=== PATIENT | male | born 1965 ===

== ENCOUNTER 2019-03-17 11:02 | Inpatient (IN) | payer SELFPAY ==
[2019-03-17 11:49] LABS: Basophils # (Auto) 0.2 K/mm3 (0.0-0.1); Basophils % (Auto) 1.1 % (0.0-1.8); Eosinophils # (Auto) 0.3 K/mm3 (0.0-0.4); Eosinophils % (Auto) 1.9 % (0.0-4.3); Hematocrit 42.6 % (35.5-45.6); Hemoglobin 14.5 gm/dl (11.8-15.2); Lymphocytes # (Auto) 2.4 K/mm3 (1.2-5.4); Lymphocytes % (Auto) 15.7 % (13.4-35.0); Mean Corpuscular HGB Conc 34 % (32-34); Mean Corpuscular Volume 88 fl (84-94); Monocytes # (Auto) 0.8 K/mm3 (0.0-0.8); Monocytes % (Auto) 5.1 % (0.0-7.3); Platelet Count 259 K/mm3 (140-440); Red Blood Count 4.82 M/mm3 (3.65-5.03); Red Cell Distribution Width 12.5 % (13.2-15.2)
[2019-03-17 12:12] LABS: Alanine Aminotransferase 6 units/L (7-56); Albumin 3.5 g/dL (3.9-5); BUN/Creatinine Ratio 22; Blood Urea Nitrogen 13 mg/dL (9-20); Calcium 9.7 mg/dL (8.4-10.2); Hemolysis Index 35
--- NOTE | 2019-03-17 12:39 | XRay Report ---
LEFT FOOT, 3 views: History: Diabetic foot wound. There is mild distal soft tissue swelling. Soft tissue ulceration of the distal great toe is suspected with overlying bandage. There is no obvious bony destruction, fracture or joint pathology. IMPRESSION: Soft tissue findings as described. The bony structures are unremarkable .
[2019-03-17] MEDS ORDERED: VANCOMYCIN 1,500 MG in NACL 0.9% 500 ML 500 ML IV ONE (14:47)
[2019-03-17] MEDS ORDERED: NACL 0.9% 1000 ML IV ONE (14:47)
[2019-03-17] MEDS ORDERED: VANCOMYCIN PHARMACY TO DOSE IV SCH (15:00)
[2019-03-17] MEDS: ZOSYN/NS 4.5GM/100ML 4.5 GM/100 ML VIAL IV SCH ×2 (15:00→23:06)
[2019-03-17] MEDS ORDERED: ZOFRAN IV ONE (15:01)
[2019-03-17] MEDS ORDERED: MORPHINE IV ONE (15:01)
--- NOTE | 2019-03-17 15:12 | Emergency Department Report ---
ED General Adult HPI - General Chief complaint: Extremity Problem,Nontraumatic Stated complaint: LFT FOOT INJURY/PAIN Time Seen by Provider: 03/17/19 14:33 Source: patient Mode of arrival: Ambulatory Limitations: Language Barrier - History of Present Illness Initial comments: Patient presents to the emergency department with a chief complaint of left foot pain and drainage from an abscess of his left foot. Patient states he has diabetes and normally cuts his nails himself but a couple of weeks ago he admitted himself and has had issues since that time. Patient states this has happened before but he was able to treat it with peroxide and salt water baths -: Gradual Location: lower extremity Severity scale (0 -10): 10 Quality: sharp Consistency: constant Improves with: none Worsens with: movement Associated Symptoms: denies other symptoms Treatments Prior to Arrival: none - Related Data Allergies Allergy/AdvReac Type Severity Reaction Status Date / Time No Known Allergies Allergy Verified 03/17/19 11:23 ED Review of Systems ROS: Stated complaint: LFT FOOT INJURY/PAIN Other details as noted in HPI Comment: All other systems reviewed and negative Constitutional: denies: chills, fever Eyes: denies: eye pain, eye discharge, vision change ENT: denies: ear pain, throat pain Respiratory: denies: cough, shortness of breath, wheezing Cardiovascular: denies: chest pain, palpitations Endocrine: no symptoms reported Gastrointestinal: denies: abdominal pain, nausea, diarrhea Genitourinary: denies: urgency, dysuria Musculoskeletal: other (left foot pain and infection). denies: back pain, joint swelling, arthralgia Skin: denies: rash, lesions Neurological: denies: headache, weakness, paresthesias Psychiatric: denies: anxiety, depression Hematological/Lymphatic: denies: easy bleeding, easy bruising ED Past Medical Hx - Past Medical History Previous Medical History?: Yes Hx Diabetes: Yes - Surgical History Past Surgical History?: No - Social History Smoking Status: Never Smoker Substance Use Type: None ED Physical Exam - General Limitations: Language Barrier General appearance: alert, in no apparent distress - Head Head exam: Present: atraumatic, normocephalic - Eye Eye exam: Present: normal appearance, PERRL, EOMI - ENT ENT exam: Present: mucous membranes moist - Neck Neck exam: Present: normal inspection - Respiratory Respiratory exam: Present: normal lung sounds bilaterally. Absent: respiratory distress, wheezes, rales - Cardiovascular Cardiovascular Exam: Present: normal rhythm, tachycardia, other (patient has palpable dorsalis pedis and posterior tibialis pulses of the left foot). Absent: systolic murmur, diastolic murmur, rubs, gallop - GI/Abdominal GI/Abdominal exam: Present: soft, normal bowel sounds. Absent: distended, tenderness - Rectal Rectal exam: Present: deferred - Extremities Exam Extremities exam: Present: other (there is dry gangrene of the great toe of the left foot) - Back Exam Back exam: Present: normal inspection - Neurological Exam Neurological exam: Present: alert, oriented X3, CN II-XII intact. Absent: motor sensory deficit - Psychiatric Psychiatric exam: Present: normal affect, normal mood - Skin Skin exam: Present: warm, dry, intact, normal color, other (there is cellulitis or purulent drainage of the left foot with erythema and warmth to touch) ED Course Vital Signs 03/17/19 11:22 Temperature 97.5 F L Pulse Rate 103 H Respiratory 20 Rate Blood Pressure 142/93 [Right] O2 Sat by Pulse 100 Oximetry ED Medical Decision Making - Lab Data Result diagrams: 03/17/19 11:39 03/17/19 11:39 Lab Results 03/17/19 03/17/19 03/17/19 Range/Units 11:24 11:39 11:39 WBC 15.6 H (4.5-11.0) K/mm3 RBC 4.82 (3.65-5.03) M/mm3 Hgb 14.5 (11.8-15.2) gm/dl Hct 42.6 (35.5-45.6) % MCV 88 (84-94) fl MCH 30 (28-32) pg MCHC 34 (32-34) % RDW 12.5 L (13.2-15.2) % Plt Count 259 (140-440) K/mm3 Lymph % (Auto) 15.7 (13.4-35.0) % [place] % (Auto) 5.1 (0.0-7.3) % Eos % (Auto) 1.9 (0.0-4.3) % Baso % (Auto) 1.1 (0.0-1.8) % Lymph # 2.4 (1.2-5.4) K/mm3 [place] # 0.8 (0.0-0.8) K/mm3 Eos # 0.3 (0.0-0.4) K/mm3 Baso # 0.2 H (0.0-0.1) K/mm3 Seg Neutrophils % 76.2 H (40.0-70.0) % Seg Neutrophils # 11.8 H (1.8-7.7) K/mm3 Sodium 134 L (137-145) mmol/L Potassium 4.6 (3.6-5.0) mmol/L Chloride 95.8 L (98-107) mmol/L Carbon Dioxide 23 (22-30) mmol/L Anion Gap 20 mmol/L BUN 13 (9-20) mg/dL Creatinine 0.6 L (0.8-1.5) mg/dL Estimated GFR > 60 ml/min BUN/Creatinine Ratio 22 % Glucose 207 H (75-100) mg/dL POC Glucose 198 H (70-105) Lactic Acid (0.7-2.0) mmol/L Calcium 9.7 (8.4-10.2) mg/dL Total Bilirubin 0.70 (0.1-1.2) mg/dL AST 13 (5-40) units/L ALT 6 L (7-56) units/L Alkaline Phosphatase 108 (35-129) units/L Total Protein 8.8 H (6.3-8.2) g/dL Albumin 3.5 L (3.9-5) g/dL Albumin/Globulin Ratio 0.7 % 03/17/19 03/17/19 Range/Units 11:39 14:57 WBC (4.5-11.0) K/mm3 RBC (3.65-5.03) M/mm3 Hgb (11.8-15.2) gm/dl Hct (35.5-45.6) % MCV (84-94) fl MCH (28-32) pg MCHC (32-34) % RDW (13.2-15.2) % Plt Count (140-440) K/mm3 Lymph % (Auto) (13.4-35.0) % [place] % (Auto) (0.0-7.3) % Eos % (Auto) (0.0-4.3) % Baso % (Auto) (0.0-1.8) % Lymph # (1.2-5.4) K/mm3 [place] # (0.0-0.8) K/mm3 Eos # (0.0-0.4) K/mm3 Baso # (0.0-0.1) K/mm3 Seg Neutrophils % (40.0-70.0) % Seg Neutrophils # (1.8-7.7) K/mm3 Sodium (137-145) mmol/L Potassium (3.6-5.0) mmol/L Chloride (98-107) mmol/L Carbon Dioxide (22-30) mmol/L Anion Gap mmol/L BUN (9-20) mg/dL Creatinine (0.8-1.5) mg/dL Estimated GFR ml/min BUN/Creatinine Ratio % Glucose (75-100) mg/dL POC Glucose 183 H (70-105) Lactic Acid 1.40 (0.7-2.0) mmol/L Calcium (8.4-10.2) mg/dL Total Bilirubin (0.1-1.2) mg/dL AST (5-40) units/L ALT (7-56) units/L Alkaline Phosphatase (35-129) units/L Total Protein (6.3-8.2) g/dL Albumin (3.9-5) g/dL Albumin/Globulin Ratio % - Radiology Data Radiology results: image reviewed - Medical Decision Making Plan of care discussed with patient Results discussed with patient Sepsis protocol initiated Critical Care Time: Yes Critical care time in (mins) excluding proc time.: 35 Critical care attestation.: If time is entered above; I have spent that time in minutes in the direct care of this critically ill patient, excluding procedure time. ED Disposition Clinical Impression: Sepsis, Cellulitis, Dry gangrene Disposition: OP ADMIT IP TO THIS HOSP Is pt being admited?: Yes Does the pt Need Aspirin: No Condition: Fair Referrals: CYNTHIA SHAH MD [Primary Care Provider] - 3-5 Days
--- NOTE | 2019-03-17 15:24 | History and Physical Report ---
History of Present Illness Chief complaint: My foot hurts History of present illness: 43 YO Male with DM presents to ED for evaluation. Pt states that he has experienced pain and swelling in his left foot over the past 2 weeks with worsening symptoms over the past 4 days. Pt acknowledges redness, and purulent drainage from his left foot. Pt states that symptoms began after trimming his toenails 2 weeks ago. Pt denies fever, chills, CP, Palpitations, NVD, Trauma, productive cough, or recent ill contacts. Pt transported to [facility] via private vehicle. Pt seen and evaluated in ED and found to have Diabetic Foot complicated by SIRS, and LLE Cellulitis. Pt admitted to medical floor and treated with IV antibiotic therapy. No prior admission for review. No medication listed at time of exam for reconciliation. Past History Past Medical History: diabetes Past Surgical History: No surgical history, Other (reviewed) Social history: single. denies: smoking, alcohol abuse, prescription drug abuse Family history: diabetes, hypertension Medications and Allergies Allergies Allergy/AdvReac Type Severity Reaction Status Date / Time No Known Allergies Allergy Verified 03/17/19 11:23 Home Medications Medication Instructions Recorded Confirmed Last Taken Type No Known Home Medications [No 03/17/19 03/17/19 Unknown History Reported Home Medications] Active Meds: Active Medications Vancomycin HCl 1,500 mg/ (Sodium Chloride) 530 mls @ 333 mls/hr IV ONCE ONE; Protocol Stop: 03/17/19 16:22 Piperacillin Sod/Tazobactam Sod (Zosyn/Ns 4.5gm/100ml) 4.5 gm in 100 mls @ 200 mls/hr IV Q8HR [facility]; Protocol Review of Systems Constitutional: no weight loss, no weight gain, no fever, no chills Ears, nose, mouth and throat: no ear pain, no ear discharge, no tinnitis, no decreased hearing, no nose pain, no nasal congestion Cardiovascular: no chest pain, no orthopnea, no palpitations, no rapid/irregular heart beat, no syncope Respiratory: no cough, no cough with sputum, no excessive sputum, no hemoptysis, no shortness of breath Gastrointestinal: no abdominal pain, no nausea, no vomiting, no diarrhea, no constipation Genitourinary Male: no hematuria, no flank pain, no discharge, no urinary frequency, no urinary hesitancy Rectal: no pain, no incontinence, no bleeding Musculoskeletal: no neck stiffness, no neck pain, no shooting arm pain, no low back pain, no shooting leg pain Integumentary: redness, foot/leg ulcers, no rash, no pruritis Neurological: no transient paralysis, no paralysis, no weakness, no tingling, no seizures, no syncope Psychiatric: no anxiety, no memory loss, no change in sleep habits, no sleep disturbances, no insomnia, no hypersomnia, no disorientation Endocrine: no cold intolerance, no heat intolerance, no polyuria, no nocturia, no excessive sweating Hematologic/Lymphatic: no easy bruising, no easy bleeding, no lymphadenopathy Allergic/Immunologic: no urticaria, no allergic rhinitis, no wheezing, no persistent infections Exam - Constitutional Vitals: Temp Pulse Resp BP Pulse Ox 97.5 F L 103 H 20 142/93 100 03/17/19 11:22 03/17/19 11:22 03/17/19 11:22 03/17/19 11:22 03/17/19 11:22 General appearance: Present: mild distress - EENT Eyes: Present: PERRL ENT: hearing intact, clear oral mucosa - Neck Neck: Present: supple, normal ROM - Respiratory Respiratory effort: normal Respiratory: bilateral: CTA - Cardiovascular Heart Sounds: Present: S1 & S2. Absent: rub, click - Extremities Extremities: pulses symmetrical, No edema Extremity abnormal: edema, erythema, tenderness Peripheral Pulses: within normal limits - Abdominal General gastrointestinal: Present: soft, non-tender, non-distended, normal bowel sounds Male genitourinary: Present: normal - Integumentary Integumentary: Present: clear, warm, dry - Musculoskeletal Musculoskeletal: gait normal, strength equal bilaterally - Psychiatric Psychiatric: appropriate mood/affect, intact judgment & insight - Neurologic Neurologic: CNII-XII intact, moves all extremities Results - Labs CBC & Chem 7: 03/17/19 11:39 03/17/19 11:39 Labs: Abnormal lab results 03/17/19 03/17/19 03/17/19 Range/Units 11:24 11:39 11:39 WBC 15.6 H (4.5-11.0) K/mm3 RDW 12.5 L (13.2-15.2) % Baso # 0.2 H (0.0-0.1) K/mm3 Seg Neutrophils % 76.2 H (40.0-70.0) % Seg Neutrophils # 11.8 H (1.8-7.7) K/mm3 Sodium 134 L (137-145) mmol/L Chloride 95.8 L (98-107) mmol/L Creatinine 0.6 L (0.8-1.5) mg/dL Glucose 207 H (75-100) mg/dL POC Glucose 198 H (70-105) ALT 6 L (7-56) units/L Total Protein 8.8 H (6.3-8.2) g/dL Albumin 3.5 L (3.9-5) g/dL 03/17/19 Range/Units 14:57 WBC (4.5-11.0) K/mm3 RDW (13.2-15.2) % Baso # (0.0-0.1) K/mm3 Seg Neutrophils % (40.0-70.0) % Seg Neutrophils # (1.8-7.7) K/mm3 Sodium (137-145) mmol/L Chloride (98-107) mmol/L Creatinine (0.8-1.5) mg/dL Glucose (75-100) mg/dL POC Glucose 183 H (70-105) ALT (7-56) units/L Total Protein (6.3-8.2) g/dL Albumin (3.9-5) g/dL Assessment and Plan - Patient Problems (1) Cellulitis Current Visit: Yes Status: Acute Qualifiers: Site of cellulitis of extremity: lower extremity Laterality: left Plan to address problem: IV antibiotic therapy, MRI Left Lower extremity, CBC, CMP, x ray RLE to evaluate for periosteal elevation. (2) Diabetic foot Current Visit: Yes Status: Acute Plan to address problem: Xray LLE, MRI LLE, treat cellulitis, wound care consult (3) SIRS (systemic inflammatory response syndrome) Current Visit: Yes Status: Acute Plan to address problem: IV antibiotic therapy, IVF resuscitation therapy, CBC, CMP, Chest x ray (4) Diabetes Current Visit: Yes Status: Acute Plan to address problem: ADA diet, Insulin, accu check (5) DVT prophylaxis Current Visit: Yes Status: Acute Plan to address problem: SCD to BLE while in bed, prophylactic lovenox
[2019-03-17] MEDS ORDERED: ZOFRAN IV PRN (15:25)
[2019-03-17] MEDS ORDERED: PROVENTIL IH PRN (15:25)
[2019-03-17] MEDS ORDERED: TYLENOL PO PRN (15:25)
[2019-03-17] MEDS ORDERED: MORPHINE IV PRN (15:25)
[2019-03-17] MEDS ORDERED: VANCOMYCIN/NS 1 GM/250 ML 1 GM/250 ML BAG IV ONE (15:28)
[2019-03-17] MEDS ORDERED: D50W (25GM) Syringe IV PRN (17:51)
[2019-03-17] MEDS: PEPCID PO SCH (23:04)
[2019-03-17] MEDS: LOVENOX SUB-Q SCH (23:04)
[2019-03-17] MEDS: SODIUM CHLORIDE FLUSH SYRINGE 10 ML IV SCH (23:05)
[2019-03-17] MEDS: HumaLOG SUB-Q SCH (23:05)
[2019-03-18 05:58] LABS: Basophils % (Auto) 0.5 % (0.0-1.8); Eosinophils # (Auto) 0.2 K/mm3 (0.0-0.4); Eosinophils % (Auto) 2.6 % (0.0-4.3); Hematocrit 34.7 % (35.5-45.6); Hemoglobin 12.1 gm/dl (11.8-15.2); Lymphocytes # (Auto) 2.1 K/mm3 (1.2-5.4); Lymphocytes % (Auto) 22.4 % (13.4-35.0); Mean Corpuscular HGB Conc 35 % (32-34); Mean Corpuscular Volume 87 fl (84-94); Monocytes # (Auto) 0.7 K/mm3 (0.0-0.8); Monocytes % (Auto) 8.1 % (0.0-7.3); Platelet Count 212 K/mm3 (140-440); Red Blood Count 3.98 M/mm3 (3.65-5.03); Red Cell Distribution Width 12.3 % (13.2-15.2)
[2019-03-18] MEDS: VANCOMYCIN 1,250 MG in NACL 0.9% 250ML 250 ML IV SCH ×2 (06:18→18:30)
[2019-03-18 06:20] LABS: Albumin 3.2 g/dL (3.9-5); BUN/Creatinine Ratio 16; Blood Urea Nitrogen 11 mg/dL (9-20); Calcium 8.6 mg/dL (8.4-10.2); Hemolysis Index 5
[2019-03-18 06:29] LABS: Alanine Aminotransferase < 5 units/L (7-56)
[2019-03-18] MEDS: PEPCID PO SCH ×2 (09:55→21:40)
[2019-03-18] MEDS: HumaLOG SUB-Q SCH ×4 (09:55→21:41)
[2019-03-18] MEDS: SODIUM CHLORIDE FLUSH SYRINGE 10 ML IV SCH ×2 (09:56→21:42)
--- NOTE | 2019-03-18 14:40 | Progress Note ---
Assessment and Plan /Cellulites of LLE cont IV antibiotic therapy, f/u MRI Left Lower extremity / Diabetic foot Xray LLE, MRI LLE, treat cellulites, wound care consulted / SIRS (systemic inflammatory response syndrome) likely from diabetis foot ulcer cont IV antibiotic therapy, follow cx / Diabetes ADA diet, Insulin, accu check / DVT prophylaxis SCD to BLE while in bed, prophylactic lovenox Subjective Date of service: 03/18/19 Interval history: Patient seen and examined. Medical records and medication list reviewed. No acute event overnight noted by the RN. Patient denies any chest pain or difficulty breathing. Patient is tolerating diet. Discussed plan of care at bedside with patient. Objective - Constitutional Vitals: Vital Signs - 12hr 03/18/19 03/18/19 03/18/19 05:43 10:00 12:19 Temperature 98.0 F 98.3 F Pulse Rate 78 77 Respiratory 16 16 Rate Blood Pressure 119/76 123/82 O2 Sat by Pulse 98 97 99 Oximetry General appearance: Present: no acute distress, well-nourished - EENT Eyes: PERRL, EOM intact ENT: hearing intact, clear oral mucosa Ears: bilateral: normal - Neck Neck: supple, normal ROM - Respiratory Respiratory effort: normal Respiratory: bilateral: CTA - Cardiovascular Rhythm: regular Heart Sounds: Present: S1 & S2. Absent: gallop, rub Extremities: pulses intact, No edema, normal color, Full ROM Extremity abnormal: other (left foot with chronic wound and wound dressing) - Gastrointestinal General gastrointestinal: Present: soft, non-tender, non-distended, normal bowel sounds - Integumentary Integumentary: clear, warm, dry - Musculoskeletal Musculoskeletal: 1, strength equal bilaterally - Neurologic Neurologic: moves all extremities - Psychiatric Psychiatric: memory intact, appropriate mood/affect, intact judgment & insight - Labs CBC & Chem 7: 03/18/19 05:19 03/18/19 05:19 Labs: Abnormal lab results 03/17/19 03/17/19 03/18/19 Range/Units 14:57 22:17 05:19 Hct 34.7 L D (35.5-45.6) % MCHC 35 H (32-34) % RDW 12.3 L (13.2-15.2) % [place] % (Auto) 8.1 H (0.0-7.3) % Creatinine (0.8-1.5) mg/dL Glucose (75-100) mg/dL POC Glucose 183 H 343 H (70-105) ALT (7-56) units/L Albumin (3.9-5) g/dL 03/18/19 03/18/19 03/18/19 Range/Units 05: 07:57 11:22 Hct (35.5-45.6) % MCHC (32-34) % RDW (13.2-15.2) % [place] % (Auto) (0.0-7.3) % Creatinine 0.7 L (0.8-1.5) mg/dL Glucose 240 H (75-100) mg/dL POC Glucose 178 H 317 H (70-105) ALT < 5 L (7-56) units/L Albumin 3.2 L (3.9-5) g/dL
[2019-03-18] MEDS: PERCOCET 5/325 PO PRN (15:14)
[2019-03-18] MEDS: ZOSYN/NS 4.5GM/100ML 4.5 GM/100 ML VIAL IV SCH ×4 (15:22→21:41)
[2019-03-18] MEDS: LOVENOX SUB-Q SCH (21:40)
--- NOTE | 2019-03-18 22:59 | Magnetic Resonance Report ---
PROCEDURE: MRI LEFT FOOT WITHOUT AND WITH CONTRAST TECHNIQUE: Magnetic resonance imaging of the LEFT foot was performed using standard pulse sequences before and after the IV injection of paramagnetic contrast. CPT 92132 HISTORY: Diabetes COMPARISONS: X-ray 03/17/2019 . FINDINGS: The bony structures are intact. There are no fractures or malalignments. There is no bone marrow grabiel a. 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 There is no bone marrow enhancement to suggest osteomyelitis. There is diffuse subcutaneous edema and swelling suggesting cellulitis. There is a discrete subcutane ous loculated fluid collection along the first metatarsal bone measuring 3.8 x 3.9 x 1.3 cm suggestin g a subcutaneous abscess. The flexor and extensor tendons and the ligaments are intact. IMPRESSION: There are no fractures or malalignments. There is no bone marrow edema. There is no bone marrow enhancement to suggest osteomyelitis. There is diffuse subcutaneous edema and swelling suggesting cellulitis. There is a discrete subcutaneous loculated fluid collection along the first metatarsal bone measuring 3.8 x 3.9 x 1.3 cm suggesting a subcutaneous abscess. This document is electronically signed by Don Hernandez MD., Mar 18 2019 10:57:45 PM ET
[2019-03-19] MEDS: VANCOMYCIN 1,250 MG in NACL 0.9% 250ML 250 ML IV SCH ×2 (04:39→18:14)
[2019-03-19] MEDS: PERCOCET 5/325 PO PRN (05:34)
[2019-03-19] MEDS: ZOSYN/NS 4.5GM/100ML 4.5 GM/100 ML VIAL IV SCH ×3 (05:42→22:12)
[2019-03-19] MEDS: HumaLOG SUB-Q SCH ×4 (08:04→22:13)
[2019-03-19] MEDS: PEPCID PO SCH ×2 (09:50→22:12)
[2019-03-19] MEDS: SODIUM CHLORIDE FLUSH SYRINGE 10 ML IV PRN (09:51)
--- NOTE | 2019-03-19 14:19 | Progress Note ---
Assessment and Plan /Cellulites of LLE with abscess cont IV antibiotic therapy, MRI Left Lower extremity showed possible abscess formation will consult GS / Diabetic foot treat cellulites, tight glycemic control, wound care/ GS consulted / SIRS (systemic inflammatory response syndrome) likely from diabetis foot ulcer cont IV antibiotic therapy, follow cx / Diabetes ADA diet, Insulin, accu check / DVT prophylaxis SCD to BLE while in bed, prophylactic lovenox MRI left foot; There are no fractures or malalignments. There is no bone marrow edema. There is no bone marrow enhancement to suggest osteomyelitis. There is diffuse subcutaneous edema and swelling suggesting cellulitis. There is a discrete subcutaneous loculated fluid collection along the first metatarsal bone measuring 3.8 x 3.9 x 1.3 cm suggesting a subcutaneous abscess. Subjective Date of service: 03/19/19 Interval history: Patient seen and examined. Medical records and medication list reviewed. No acute event overnight noted by the RN. Patient denies any chest pain or difficulty breathing. Patient is tolerating diet. Discussed plan of care at bedside with patient with observation nurse. Objective - Exam Narrative Exam: General appearance: Present: no acute distress, well-nourished - EENT Eyes: PERRL, EOM intact ENT: hearing intact, clear oral mucosa Ears: bilateral: normal - Neck Neck: supple, normal ROM - Respiratory Respiratory effort: normal Respiratory: bilateral: CTA - Cardiovascular Rhythm: regular Heart Sounds: Present: S1 & S2. Absent: gallop, rub Extremities: pulses intact, No edema, normal color, Full ROM Extremity abnormal: other (left foot with chronic wound and wound dressing) - Gastrointestinal General gastrointestinal: Present: soft, non-tender, non-distended, normal bowel sounds - Integumentary Integumentary: clear, warm, dry - Musculoskeletal Musculoskeletal: 1, strength equal bilaterally - Neurologic Neurologic: moves all extremities - Psychiatric Psychiatric: memory intact, appropriate mood/affect, intact judgment & insight - Constitutional Vitals: Vital Signs - 12hr 03/19/19 03/19/19 05:34 12:03 Temperature 98.5 F 98.0 F Pulse Rate 78 78 Respiratory 20 18 Rate Blood Pressure 110/64 122/79 O2 Sat by Pulse 98 100 Oximetry - Labs CBC & Chem 7: 03/18/19 05:19 03/18/19 05:19 Labs: Abnormal lab results 03/18/19 03/18/19 03/19/19 Range/Units 17:51 21:35 08:08 POC Glucose 226 H 251 H 123 H (70-105) 03/19/19 Range/Units 11:23 POC Glucose 207 H (70-105)
--- NOTE | 2019-03-19 19:13 | Consultation ---
History of Present Illness Consult date: 03/19/19 Chief complaint: L foot wound - History of present illness History of present illness: 43 y czech speaking male with DM presents to hospital with swelling and pain of left foot for the last 2 weeks. The has been purulent drainage from the foot. He cut his own toe nails. No f/c cp, sob, n/v, abd pain. 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 denies: smoking, alcohol abuse, prescription drug abuse Family history: diabetes, hypertension Medications and Allergies Allergies Allergy/AdvReac Type Severity Reaction Status Date / Time No Known Allergies Allergy Verified 03/17/19 11:23 Home Medications Medication Instructions Recorded Confirmed Last Taken Type No Known Home Medications [No 03/17/19 03/17/19 Unknown History Reported Home Medications] Active Meds: Active Medications Acetaminophen (Tylenol) 650 mg PO Q4H PRN PRN Reason: Pain MILD(1-3)/Fever >100.5/ZHOU Albuterol (Proventil) 2.5 mg IH Q4HRT PRN PRN Reason: Shortness Of Breath Dextrose (D50w (25gm) Syringe) 50 ml IV PRN PRN PRN Reason: Hypoglycemia Enoxaparin Sodium (Lovenox) 40 mg SUB-Q QDAY@2200 [facility] Last Admin: 03/18/19 21:40 Dose: 40 mg Documented by: Famotidine (Pepcid) 10 mg PO BID [facility] Last Admin: 03/19/19 09:50 Dose: 10 mg Documented by: Piperacillin Sod/Tazobactam Sod (Zosyn/Ns 4.5gm/100ml) 4.5 gm in 100 mls @ 200 mls/hr IV Q8HR [facility]; Protocol Last Admin: 03/19/19 14:11 Dose: 200 mls/hr Documented by: Vancomycin HCl 1,250 mg/ (Sodium Chloride) 275 mls @ 166.667 mls/hr IV Q12H [facility] Last Admin: 03/19/19 18:14 Dose: 166.667 mls/hr Documented by: Insulin Human Isoph/Insulin Regular (Humulin 70/30) 10 unit SUB-Q BIDDIAB [facility] Last Admin: 03/19/19 18:14 Dose: 10 unit Documented by: Insulin Human Lispro (Humalog) 0 unit SUB-Q ACHS [facility]; Protocol Last Admin: 03/19/19 18:14 Dose: 1 unit Documented by: Morphine Sulfate (Morphine) 2 mg IV Q4H PRN PRN Reason: Pain, Moderate (4-6) Ondansetron HCl (Zofran) 4 mg IV Q8H PRN PRN Reason: Nausea And Vomiting Oxycodone/Acetaminophen (Percocet 5/325) 1 tab PO Q6H PRN PRN Reason: Pain, Moderate (4-6) Last Admin: 03/19/19 05:34 Dose: 1 tab Documented by: Sodium Chloride (Sodium Chloride Flush Syringe 10 Ml) 10 ml IV PRN PRN PRN Reason: LINE FLUSH Last Admin: 03/19/19 09:51 Dose: 10 ml Documented by: Review of Systems All systems: negative (10 pt ROS performed and negative except for that listed in HPI) Exam Vital Signs Temp Pulse Resp BP Pulse Ox 97.5 F L 103 H 20 142/93 100 03/17/19 11:22 03/17/19 11:22 03/17/19 11:22 03/17/19 11:22 03/17/19 11:22 Narrative exam: Gen: AAOx3. NAD CV: s1, S2+ resp: even and unlabored Ext; L foot dressing with some seropurulent drainage. Images from nuclear equipment operator reviewed Results - Labs 03/18/19 05:19 03/18/19 05:19 Abnormal lab results 03/18/19 03/19/19 03/19/19 Range/Units 21:35 08:08 11:23 POC Glucose 251 H 123 H 207 H (70-105) 03/19/19 Range/Units 16:20 POC Glucose 169 H (70-105) - Imaging Additional studies: MRI L foot Assessment and Plan 43 yo M with infected left diabetic foot wound with abscess Plan; 1. NPO p MN 2. IVF 3. OR tomorrow for I&D and debridement of wound - all risks, benefits of surgery discussed with patient 4. glucose control 5. daily wound care Thank you, please call with questions
[2019-03-19] MEDS: LOVENOX SUB-Q SCH (22:12)
[2019-03-20] MEDS: ZOSYN/NS 4.5GM/100ML 4.5 GM/100 ML VIAL IV SCH ×3 (05:22→22:43)
[2019-03-20] MEDS: VANCOMYCIN 1,250 MG in NACL 0.9% 250ML 250 ML IV SCH (06:11)
[2019-03-20] MEDS: HumaLOG SUB-Q SCH ×4 (07:53→22:48)
[2019-03-20] MEDS: PEPCID PO SCH ×2 (10:31→22:47)
[2019-03-20] MEDS ORDERED: NACL 0.9% IV SCH (11:53)
[2019-03-20] MEDS ORDERED: NACL 0.9% 1000 ML 1,000 ML ONE (11:58)
--- NOTE | 2019-03-20 12:15 | Anesthesia Day of Surgery ---
Anesthesia Day of Surgery - Day of Surgery Patient Examined: Yes Patient H&P Reviewed: Yes Patient is NPO: Yes Beta Blockers: No Cardiac Clearance: No Pulmonary Clearance: No
--- NOTE | 2019-03-20 12:15 | Anesthesia Consultation ---
Anesthesia Consult and Med Hx Date of service: 03/20/19 - Airway Anesthetic Teeth Evaluation: Poor ROM Head & Neck: Adequate Mental/Hyoid Distance: Adequate Mallampati Class: Class II Intubation Access Assessment: Good - Pulmonary Exam CTA: Yes - Cardiac Exam Cardiac Exam: RRR - Pre-Operative Health Status ASA Pre-Surgery Classification: ASA3 Proposed Anesthetic Plan: MAC
[2019-03-20] MEDS ORDERED: SUBLIMAZE IV PRN (12:16)
[2019-03-20] MEDS ORDERED: ZOFRAN IV PRN (12:16)
[2019-03-20] MEDS ORDERED: NARCAN 0.4 MG/1 ML IV PRN (12:16)
[2019-03-20] MEDS ORDERED: DILAUDID IV PRN (12:16)
[2019-03-20] MEDS ORDERED: NACL 0.9% 1000 ML 1,000 ML IV SCH (13:00)
[2019-03-20] MEDS ORDERED: SUBLIMAZE ONE ×2 (13:12→14:11)
[2019-03-20] MEDS ORDERED: XYLOCAINE MPF 2% ONE ×2 (13:12→13:41)
[2019-03-20] MEDS ORDERED: DIPRIVAN 10 MG/ML IV ONE ×2 (13:13→13:40)
[2019-03-20] MEDS ORDERED: MARCAINE 0.5% INFILTRATI ONE ×3 (13:19→14:02)
[2019-03-20] MEDS ORDERED: HYDROGEN PEROXIDE ONE (13:19)
[2019-03-20] MEDS ORDERED: VERSED ONE (13:42)
[2019-03-20] MEDS ORDERED: NACL 0.9% IR ONE (14:02)
[2019-03-20] MEDS: VANCOMYCIN 1,500 MG in NACL 0.9% 500 ML 500 ML IV SCH (17:23)
--- NOTE | 2019-03-20 19:08 | Vascular Lab Report ---
PROCEDURE: VL ARTERIAL DUPLEX LE BILAT HISTORY: lower extremity wound, diabetes FINDINGS: Real-time ultrasound of the right leg and left leg was performed using grayscale and color Doppler images. On the right, peak systolic velocity in the external iliac artery was 122 cm/s triphasic, common femo ral artery 68 cm/s and triphasic; proximal SFA 87 cm/s and triphasic; mid SFA 125 cm/s and triphasic; distal SFA 85 cm/s and triphasic; deep femoral artery 80 cm/s and triphasic; popliteal artery 85 cm/ s and triphasic; posterior tibial artery 66 cm/s and biphasic; anterior tibial artery 85 cm/s and tri phasic; dorsalis pedis 82 cm/s and biphasic. On the left, peak systolic velocity in the external iliac artery was 143 cm/s and triphasic; common f emoral artery 104 cm/s triphasic; proximal SFA 103 cm/s and triphasic; mid SFA 138 cm/s and triphasic ; distal SFA 112 cm/s and triphasic; deep femoral artery 72 cm/s biphasic; popliteal 106 cm/s and tri phasic; posterior tibial 107 cm/s and monophasic; anterior tibial 104 cm/s and monophasic; dorsalis p katie 113 cm/s and monophasic. IMPRESSION: The leg arterial vasculature appears patent bilaterally This document is electronically signed by García Greene MD., Mar 20 2019 07:06:16 PM ET
[2019-03-20] MEDS: LOVENOX SUB-Q SCH (22:47)
[2019-03-21] MEDS: ZOSYN/NS 4.5GM/100ML 4.5 GM/100 ML VIAL IV SCH ×3 (06:27→21:36)
[2019-03-21] MEDS: VANCOMYCIN 1,500 MG in NACL 0.9% 500 ML 500 ML IV SCH ×2 (06:30→18:59)
--- NOTE | 2019-03-21 08:12 | Progress Note ---
Assessment and Plan - Patient Problems (1) Diabetic foot Current Visit: Yes Status: Acute Plan to address problem: Pt stable. s/p I&D - doing well. start dressing changes with Dakin's today. NWB on left foot. Please call with questions. Subjective Date of service: 03/21/19 Patient Reports: Positive: no new complaints, feels better, pain is less. Negative: nausea, vomiting Objective - General physical appearance no distress, no pain, other (pleasant. does not appear ill) - Eyes normal occular movement - Respiratory normal expansion, normal respiratory effort - Integumentary other (2 wounds on the left foot. Minimal erythema. Positive swelling on the plantar surface. Nontender. No purulent Drainage. Relatively clean) - Psychiatric oriented to time, oriented to person, oriented to place, speech is normal, memory intact - Labs 03/18/19 05:19 03/18/19 05:19 Diabetes panel 03/20/19 Range/Units 18:24 Hemoglobin A1c 11.1 H (4-6) %
[2019-03-21] MEDS: HumaLOG SUB-Q SCH ×4 (09:11→21:36)
--- NOTE | 2019-03-21 09:27 | Post Anesthesia Evaluation ---
- Post Anesthesia Evaluation Patient Participated: Yes Airway Patent: Yes Stable Respiratory Function: Yes Nausea/Vomiting: No Temp > 96.8F: Yes Pain Manageable: Yes Adequeate Hydration: Yes Anesthesia Complications: No
[2019-03-21] MEDS: PEPCID PO SCH ×2 (10:21→21:39)
--- NOTE | 2019-03-21 11:17 | Progress Note ---
Assessment and Plan /Cellulites of LLE with abscess cont IV antibiotic therapy, MRI Left Lower extremity showed possible abscess formation Consulted GS - plan for debridement today / Diabetic foot treat cellulites, tight glycemic control, wound care/ GS consulted / SIRS (systemic inflammatory response syndrome) likely from diabetis foot ulcer cont IV antibiotic therapy, follow cx / Diabetes ADA diet, Insulin, accu check / DVT prophylaxis SCD to BLE while in bed, prophylactic lovenox MRI left foot: There are no fractures or malalignments. There is no bone marrow edema. There is no bone marrow enhancement to suggest osteomyelitis. There is diffuse subcutaneous edema and swelling suggesting cellulitis. There is a discrete subcutaneous loculated fluid collection along the first metatarsal bone measuring 3.8 x 3.9 x 1.3 cm suggesting a subcutaneous abscess. Subjective Date of service: 03/20/19 Interval history: Patient seen and examined. Medical records and medication list reviewed. No acute event overnight noted by the RN. Patient denies any chest pain or difficulty breathing. Patient is tolerating diet. Discussed plan of care at bedside with patient with product ambassador. Plan for surgery today Objective - Exam Narrative Exam: General appearance: Present: no acute distress, well-nourished - EENT Eyes: PERRL, EOM intact ENT: hearing intact, clear oral mucosa Ears: bilateral: normal - Neck Neck: supple, normal ROM - Respiratory Respiratory effort: normal Respiratory: bilateral: CTA - Cardiovascular Rhythm: regular Heart Sounds: Present: S1 & S2. Absent: gallop, rub Extremities: pulses intact, No edema, normal color, Full ROM Extremity abnormal: other (left foot with chronic wound and wound dressing) - Gastrointestinal General gastrointestinal: Present: soft, non-tender, non-distended, normal bowel sounds - Integumentary Integumentary: clear, warm, dry - Musculoskeletal Musculoskeletal: 1, strength equal bilaterally - Neurologic Neurologic: moves all extremities - Psychiatric Psychiatric: memory intact, appropriate mood/affect, intact judgment & insight - Constitutional Vitals: Vital Signs - 12hr 03/21/19 09:01 O2 Sat by Pulse 95 Oximetry - Labs CBC & Chem 7: 03/18/19 05:19 03/18/19 05:19 Labs: Abnormal lab results 03/20/19 03/20/19 03/20/19 Range/Units 12:04 14:59 16:25 POC Glucose 140 H 131 H 130 H (70-105) Hemoglobin A1c (4-6) % 03/20/19 03/20/19 03/21/19 Range/Units 18:24 21:37 07:37 POC Glucose 258 H 221 H (70-105) Hemoglobin A1c 11.1 H (4-6) %
--- NOTE | 2019-03-21 13:31 | Progress Note ---
Assessment and Plan /Cellulites of LLE with abscess cont IV antibiotic therapy, MRI Left Lower extremity showed possible abscess formation Consulted GS - s/p debridement on 03/20/19 - wait for final cx result, consulted ID for discharge abx recommendation / Diabetic foot treat cellulites, tight glycemic control, wound care/ GS consulted / SIRS (systemic inflammatory response syndrome) likely from diabetis foot ulcer cont IV antibiotic therapy, follow cx / Diabetes ADA diet, Insulin, accu check / DVT prophylaxis SCD to BLE while in bed, prophylactic lovenox MRI left foot: There are no fractures or malalignments. There is no bone marrow edema. There is no bone marrow enhancement to suggest osteomyelitis. There is diffuse subcutaneous edema and swelling suggesting cellulitis. There is a discrete subcutaneous loculated fluid collection along the first metatarsal bone measuring 3.8 x 3.9 x 1.3 cm suggesting a subcutaneous abscess. Subjective Date of service: 03/21/19 Interval history: Patient seen and examined. Medical records and medication list reviewed. No acute event overnight noted by the RN. Patient denies any chest pain or difficulty breathing. Patient is tolerating diet. Discussed plan of care at bedside with patient with wind tunnel mechanic. Objective - Exam Narrative Exam: General appearance: Present: no acute distress, well-nourished - EENT Eyes: PERRL, EOM intact ENT: hearing intact, clear oral mucosa Ears: bilateral: normal - Neck Neck: supple, normal ROM - Respiratory Respiratory effort: normal Respiratory: bilateral: CTA - Cardiovascular Rhythm: regular Heart Sounds: Present: S1 & S2. Absent: gallop, rub Extremities: pulses intact, No edema, normal color, Full ROM Extremity abnormal: other (left foot with chronic wound and wound dressing) - Gastrointestinal General gastrointestinal: Present: soft, non-tender, non-distended, normal bowel sounds - Integumentary Integumentary: clear, warm, dry - Musculoskeletal Musculoskeletal: 1, strength equal bilaterally - Neurologic Neurologic: moves all extremities - Psychiatric Psychiatric: memory intact, appropriate mood/affect, intact judgment & insight - Constitutional Vitals: Vital Signs - 12hr 03/21/19 03/21/19 03/21/19 05:14 09:01 12:05 Temperature 98.0 F 98.1 F Pulse Rate 75 Respiratory 20 20 Rate Blood Pressure 124/78 132/76 O2 Sat by Pulse 99 95 Oximetry 03/21/19 12:16 Temperature 98.1 F Pulse Rate 90 Respiratory 19 Rate Blood Pressure 142/98 O2 Sat by Pulse 100 Oximetry - Labs CBC & Chem 7: 03/23/19 10:10 03/22/19 05:45 Labs: Abnormal lab results 03/20/19 03/20/19 03/20/19 Range/Units 14:59 16:25 18:24 POC Glucose 131 H 130 H (70-105) Hemoglobin A1c 11.1 H (4-6) % 03/20/19 03/21/19 Range/Units 21:37 07:37 POC Glucose 258 H 221 H (70-105) Hemoglobin A1c (4-6) %
[2019-03-21] MEDS: DAKIN'S HALF STRENGTH TP SCH ×2 (15:51→22:06)
[2019-03-21] MEDS: LOVENOX SUB-Q SCH (21:37)
[2019-03-21] MEDS: SODIUM CHLORIDE FLUSH SYRINGE 10 ML IV PRN (21:40)
[2019-03-22] MEDS: ZOSYN/NS 4.5GM/100ML 4.5 GM/100 ML VIAL IV SCH ×2 (05:38→13:12)
[2019-03-22] MEDS: VANCOMYCIN 1,500 MG in NACL 0.9% 500 ML 500 ML IV SCH (06:14)
[2019-03-22 06:58] LABS: BUN/Creatinine Ratio 13; Blood Urea Nitrogen 12 mg/dL (9-20); Calcium 8.7 mg/dL (8.4-10.2); Hemolysis Index 6
[2019-03-22] MEDS: HumaLOG SUB-Q SCH ×4 (08:54→22:16)
[2019-03-22] MEDS: DAKIN'S HALF STRENGTH TP SCH ×2 (11:30→21:10)
[2019-03-22] MEDS: PEPCID PO SCH ×2 (11:30→21:09)
--- NOTE | 2019-03-22 12:43 | Consultation ---
History of Present Illness - Reason for Consult Consult date: 03/22/19 Left foot abscess Requesting physician: SOTERO HERMOSILLO - History of Present Illness This patient is a 53 year old male with a past medical history of Type 2 Diabetes, that presents in the ED on 03/17/19 with a chief complaint of left foot pain and drainage from an abscess on his left foot. Patient stated that he has experienced pain and swelling in his left foot over the past 2 weeks with worsening symptoms over the past 4 day. He admits that theses symptoms began after trimming his toenails 2 weeks ago. After that he has noticed swelling, redness and purulent drainage from his left foot. On admission WBC 15.6, Creatinine 0.6, lactic Acid 1.4, Temperature 97.5., HR 103, BP 145/92. Blood cultures were drawn and show no growth to date. Left foot culture grew Beta Hemolytic Strep Group B Left foot xray shows soft tissue ulceration of the distal great toe. There is no obvious bony destruction, fracture or joint pathology. Primary language is Wolof, history obtained via language line. 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 He does not remember when he was diagnosed with diabetes.. He states that he always cuts toenails and hasn't had problem with his foot until 2 weeks ago. He denies substance, tobacco or alcohol abuse. Review of Systems: General: no fever, chills, nightsweats, unintentional weight change, or change in appetite. + subjective fever at home Cutaneous: no rash, pruritus Head: no headaches or injury Eyes: no changes in vision, eye pain, double vision Ears: no ear pain, ear discharge, ringing or hearing loss Nose: no nose bleeding, stuffiness Mouth & throat: no bleeding gums, no horseness, no dental problems, or swollen glands Neck: no pain, node enlargement/lumps, tyroid enlargement or tenderness Respiratory: no cough, wheezing, sputum, hemoptysis, pleuritic chest pain Cardiovascular: no chest pain, leg edema, cyanosis, WINN, orthopnea Musculoskeletal: Left/right foot, + long curvy toenails. Left foot diabetic ulcer Gastrointestinal: no nausea, vomiting, hematemesis, diarrhea, constipation, melena, bright red blood in stools, fecal incontinence, jaundice Genitourinary/Reproductive: no frequent urination, no dysuria, hematuria, incontinence Neurogical: no seizures, no headaches, no weakness, no paresthesias, no loss of speech or vision; no memory loss, no vertigo, no tremors, no numbness Psychiatric: stable mood; no excessive anxiety, sadness or moodiness Past History Past Medical History: diabetes Past Surgical History: No surgical history, Other (reviewed) Social history: single. denies: smoking, alcohol abuse, prescription drug abuse Family history: diabetes, hypertension Medications and Allergies Allergies Allergy/AdvReac Type Severity Reaction Status Date / Time No Known Allergies Allergy Verified 03/17/19 11:23 Home Medications Medication Instructions Recorded Confirmed Last Taken Type No Known Home Medications [No 03/17/19 03/17/19 Unknown History Reported Home Medications] Active Meds: Active Medications Acetaminophen (Tylenol) 650 mg PO Q4H PRN PRN Reason: Pain MILD(1-3)/Fever >100.5/ZHOU Albuterol (Proventil) 2.5 mg IH Q4HRT PRN PRN Reason: Shortness Of Breath Dextrose (D50w (25gm) Syringe) 50 ml IV PRN PRN PRN Reason: Hypoglycemia Enoxaparin Sodium (Lovenox) 40 mg SUB-Q QDAY@2200 [facility] Last Admin: 03/21/19 21:37 Dose: 40 mg Documented by: Famotidine (Pepcid) 10 mg PO BID [facility] Last Admin: 03/22/19 11:30 Dose: 10 mg Documented by: Piperacillin Sod/Tazobactam Sod (Zosyn/Ns 4.5gm/100ml) 4.5 gm in 100 mls @ 200 mls/hr IV Q8HR [facility]; Protocol Last Admin: 03/22/19 05:38 Dose: 200 mls/hr Documented by: Vancomycin HCl 1,500 mg/ (Sodium Chloride) 530 mls @ 333.333 mls/hr IV Q12H [facility] Last Admin: 03/22/19 06:14 Dose: 333.333 mls/hr Documented by: Sodium Chloride (Nacl 0.9% 1000 Ml) 1,000 mls @ 100 mls/hr IV DIRECT [facility] Insulin Human Isoph/Insulin Regular (Humulin 70/30) 18 unit SUB-Q BIDDIAB [facility] Last Admin: 03/22/19 08:54 Dose: 18 unit Documented by: Insulin Human Lispro (Humalog) 0 unit SUB-Q ACHS [facility]; Protocol Last Admin: 03/22/19 08:54 Dose: 1 unit Documented by: Morphine Sulfate (Morphine) 2 mg IV Q4H PRN PRN Reason: Pain, Moderate (4-6) Naloxone HCl (Narcan 0.4 Mg/1 Ml) 0.1 mg IV Q2MIN PRN PRN Reason: Res Rate </= 8 or 02 SAT < 92% Ondansetron HCl (Zofran) 4 mg IV Q8H PRN PRN Reason: Nausea And Vomiting Oxycodone/Acetaminophen (Percocet 5/325) 1 tab PO Q6H PRN PRN Reason: Pain, Moderate (4-6) Last Admin: 03/19/19 05:34 Dose: 1 tab Documented by: Sodium Chloride (Sodium Chloride Flush Syringe 10 Ml) 10 ml IV PRN PRN PRN Reason: LINE FLUSH Last Admin: 03/21/19 21:40 Dose: 10 ml Documented by: Sodium Hypochlorite (Dakin's Half Strength) 1 applic TP BID [facility] Last Admin: 03/22/19 11:30 Dose: 20 ml Documented by: Physical Examination - Physical Exam Narrative exam: Constitutional: Alert, cooperative. No acute distress. Primary language Wolof, communication via interpretation line Head, Ears, Nose: Normocephalic, atraumatic. External ears, nose normal Eyes: Conjunctivae/corneas clear. No icterus. No ptosis. Neck: Supple, no meningeal signs Oral: dentition poor. no thrush. Cardiovascular: S1, S2 normal. Respiratory: Good air entry, clear to auscultation bilaterally GI: Soft, non-tender; bowel sounds normal. No peritoneal signs Musculoskeletal: Infected left diabetic foot ulceration, per wound care left foot edematous with purulent drainage and erythema on the medial aspect of the foot. Hard callused area on the plantar aspect of the ball of foot. Long and curving toenails. Skin: same as above Hem/Lymphatic: No palpable cervical or supraclavicular nodes. No lymphangitis Psych: Mood ok. Affect normal Neurological: Awake, alert, oriented. - Constitutional Vitals: Vital Signs Temp Pulse Resp BP Pulse Ox 97.7 F 74 18 150/88 100 03/22/19 11:45 03/22/19 11:45 03/22/19 11:45 03/22/19 11:45 03/22/19 11:45 Temperature -Last 24 Hours Temperature 97.7 F Temperature 97.8 F Temperature 97.8 F Temperature 97.5 F Results - Labs CBC & Chem 7: 03/18/19 05:19 03/22/19 05:45 Labs: Abnormal lab results 03/21/19 03/21/19 03/22/19 Range/Units 12:07 17:07 05:45 Glucose 177 H (75-100) mg/dL POC Glucose 277 H 225 H (70-105) 03/22/19 03/22/19 Range/Units 07:20 11:49 Glucose (75-100) mg/dL POC Glucose 159 H 244 H (70-105) - Imaging and Cardiology Venous US: report reviewed (The leg arterial vasculature appears patent bilterally.) Assessment and Plan Cultures 03/17/2019 Blood: no growth to date 03/20/2019 Left foot anaerobic culture: No growth 03/20/2019 Surgical wound culture: Beta Hemolytic Strep group B A/P: 53 year old male with a past medical history of Type 2 Diabetes, that presents in the ED on 03/17/19 with a chief complaint of left goot pain and eldon inage from an abscess on his left foot. Patient stated that he has experienced pain and swelling in his left foot over the past 2 weeks with worsening symptoms over the past 4 day. He admits that theses symptoms began after trimming his toenails 2 weeks ago. After that he has noticed swelling, redness and purulent drainage from his left foot. Admitted with: 1. SIR's vs Sepsis: on admission, evidenced by leukocytois and tachycardia., etiology most likely infected left diabetic foot wound with abscess. No fevers. Blood cultures show no growth to date. Surgical wound cultures grew Beta henmolytic strep group B. Currently being treated with Vancomycin and Zosyn. 2. Infected Left diabetic foot ulceration: per wound care, left foot edematous with purulent drainage and erythema on the medial aspect of the foot. Hard callused area on the plantar aspect of the ball of foot. Long and curving toenails. MRI showed Diffuse subcutaneous edema and swelling suggesting cellulitis. There is a discrete subcutaneous loculated fluid collection along the first metatarsal bone measuring 3.8 x 3.9 x 1.3 cm suggesting a subcutaneous abscess. There is no bone marrow enhancement to suggest osteomyelitis. S/P debridement on 03/21/[address] Aiken. Surgical cultures grew Beta hemolytic strep group B. 3. Type 2 Diabetes: uncontrolled Plan - Start Unasyn 3gm every 6 hours while inpatient. -Discontinue Vancomycin and Zosyn -Anticipate discharge on Augmentin 875 PO BID for 10 days until March 30, 2019 -F/u ID Clinic in 2 weeks -Case management to arrnage wound care outpatient [facility] M: [phone] O:[phone] -
[2019-03-22] MEDS: UNASYN/NS 3 GM/100 ML 3 GM/100 ML BAG IV SCH ×3 (14:00→23:59)
[2019-03-22] MEDS: LOVENOX SUB-Q SCH (21:09)
[2019-03-23] MEDS: UNASYN/NS 3 GM/100 ML 3 GM/100 ML BAG IV SCH (05:53)
[2019-03-23] MEDS: HumaLOG SUB-Q SCH ×2 (08:05→12:30)
--- NOTE | 2019-03-23 09:46 | Progress Note ---
Assessment and Plan Cultures 03/17/2019 Blood: no growth to date 03/20/2019 Left foot anaerobic culture: No growth 03/20/2019 Surgical wound culture: Beta Hemolytic Strep group B A/P: 53 year old male with a past medical history of Type 2 Diabetes, that presents in the ED on 03/17/19 with a chief complaint of left goot pain and drainage from an abscess on his left foot. Patient stated that he has experienced pain and swelling in his left foot over the past 2 weeks with worsening symptoms over the past 4 day. He admits that theses symptoms began after trimming his toenails 2 weeks ago. After that he has noticed swelling, redness and purulent drainage from his left foot. Admitted with: 1. SIR's vs Sepsis: on admission, now resolved, etiology most likely infected left diabetic foot wound with abscess. No fevers. Blood cultures show no growth to date. Surgical wound cultures grew Beta henmolytic strep group B. Currently being treated with Vancomycin and Zosyn. 2. Infected Left diabetic foot ulceration: per wound care, left foot edematous with purulent drainage and erythema on the medial aspect of the foot. Hard callused area on the plantar aspect of the ball of foot. Long and curving toenails. MRI showed Diffuse subcutaneous edema and swelling suggesting cellulitis. There is a discrete subcutaneous loculated fluid collection along the first metatarsal bone measuring 3.8 x 3.9 x 1.3 cm suggesting a subcutaneous abscess. There is no bone marrow enhancement to suggest osteomyelitis. S/P debridement on 03/21/[address] Aiken. Surgical cultures grew Beta hemolytic strep group B. 3. Type 2 Diabetes: uncontrolled Plan - Continue Unasyn 3gm every 6 hours while inpatient, D2 -Anticipate discharge on Augmentin 875 PO BID for 10 days until March 30, 2019 -F/u ID Clinic in 2 weeks -Case management to arrange wound care outpatient ID is signing off [facility] M: [phone] O:[phone] - Subjective Date of service: 03/23/19 Interval history: Patient seen and examined. Communications via interpretation line. Stated that he was feeling better today. Discussion about importance of finishing antibiotic regimen and following up with wound care. Verbalized understanding. Objective - Exam Narrative Exam: Constitutional: Alert, cooperative. No acute distress. Primary language Argentine, communication via interpretation line Head, Ears, Nose: Normocephalic, atraumatic. External ears, nose normal Eyes: Conjunctivae/corneas clear. No icterus. No ptosis. Neck: Supple, no meningeal signs Oral: dentition poor. no thrush. Cardiovascular: S1, S2 normal. Respiratory: Good air entry, clear to auscultation bilaterally GI: Soft, non-tender; bowel sounds normal. No peritoneal signs Musculoskeletal: Infected left diabetic foot ulceration, per wound care left foot edematous with purulent drainage and erythema on the medial aspect of the foot. Hard callused area on the plantar aspect of the ball of foot. Long and curving toenails. Skin: same as above Hem/Lymphatic: No palpable cervical or supraclavicular nodes. No lymphangitis Psych: Mood ok. Affect normal Neurological: Awake, alert, oriented. - Constitutional Vitals: Vital Signs Temp Pulse Resp BP Pulse Ox 97.7 F 73 16 109/57 99 03/23/19 06:07 03/23/19 06:07 03/23/19 06:07 03/23/19 06:07 03/23/19 06:07 Temperature -Last 24 Hours Temperature 97.7 F Temperature 97.3 F Temperature 97.1 F Temperature 97.7 F - Labs CBC & Chem 7: 03/23/19 10:10 03/22/19 05:45 Labs: Abnormal lab results 03/22/19 03/22/19 03/22/19 Range/Units 11:49 16:20 22:09 POC Glucose 244 H 262 H 142 H (70-105) 03/23/19 Range/Units 07:21 POC Glucose 130 H (70-105)
[2019-03-23 10:45] LABS: Basophils # (Auto) 0.1 K/mm3 (0.0-0.1); Basophils % (Auto) 0.9 % (0.0-1.8); Eosinophils # (Auto) 0.2 K/mm3 (0.0-0.4); Eosinophils % (Auto) 2.4 % (0.0-4.3); Hematocrit 35.2 % (35.5-45.6); Hemoglobin 12.4 gm/dl (11.8-15.2); Lymphocytes # (Auto) 1.7 K/mm3 (1.2-5.4); Lymphocytes % (Auto) 22.8 % (13.4-35.0); Mean Corpuscular HGB Conc 35 % (32-34); Mean Corpuscular Volume 86 fl (84-94); Monocytes # (Auto) 0.4 K/mm3 (0.0-0.8); Monocytes % (Auto) 5.5 % (0.0-7.3); Platelet Count 229 K/mm3 (140-440); Red Blood Count 4.09 M/mm3 (3.65-5.03); Red Cell Distribution Width 12.5 % (13.2-15.2)
--- NOTE | 2019-03-23 11:19 | Progress Note ---
Assessment and Plan /Cellulites of LLE with abscess cont IV antibiotic therapy, MRI Left Lower extremity showed possible abscess formation Consulted GS - s/p debridement on 03/20/19 - wait for final cx result, consulted ID for discharge abx recommendation / Diabetic foot treat cellulites, tight glycemic control, wound care/ GS consulted / SIRS (systemic inflammatory response syndrome) likely from diabetis foot ulcer cont IV antibiotic therapy, follow cx / Diabetes ADA diet, Insulin, accu check / DVT prophylaxis SCD to BLE while in bed, prophylactic lovenox MRI left foot: There are no fractures or malalignments. There is no bone marrow edema. There is no bone marrow enhancement to suggest osteomyelitis. There is diffuse subcutaneous edema and swelling suggesting cellulitis. There is a discrete subcutaneous loculated fluid collection along the first metatarsal bone measuring 3.8 x 3.9 x 1.3 cm suggesting a subcutaneous abscess. Subjective Date of service: 03/22/19 Interval history: Patient seen and examined. Medical records and medication list reviewed. No acute event overnight noted by the RN. Patient denies any chest pain or difficulty breathing. Patient is tolerating diet. Discussed plan of care at bedside with patient with line producer. Objective - Exam Narrative Exam: General appearance: Present: no acute distress, well-nourished - EENT Eyes: PERRL, EOM intact ENT: hearing intact, clear oral mucosa Ears: bilateral: normal - Neck Neck: supple, normal ROM - Respiratory Respiratory effort: normal Respiratory: bilateral: CTA - Cardiovascular Rhythm: regular Heart Sounds: Present: S1 & S2. Absent: gallop, rub Extremities: pulses intact, No edema, normal color, Full ROM Extremity abnormal: other (left foot with chronic wound and wound dressing) - Gastrointestinal General gastrointestinal: Present: soft, non-tender, non-distended, normal bowel sounds - Integumentary Integumentary: clear, warm, dry - Musculoskeletal Musculoskeletal: 1, strength equal bilaterally - Neurologic Neurologic: moves all extremities - Psychiatric Psychiatric: memory intact, appropriate mood/affect, intact judgment & insight - Constitutional Vitals: Vital Signs - 12hr 03/23/19 03/23/19 00:02 06:07 Temperature 97.3 F L 97.7 F Pulse Rate 74 73 Respiratory 16 16 Rate Blood Pressure 102/60 109/57 O2 Sat by Pulse 98 99 Oximetry - Labs CBC & Chem 7: 03/23/19 10:10 03/22/19 05:45 Labs: Abnormal lab results 03/22/19 03/22/19 03/22/19 Range/Units 11:49 16:20 22:09 Hct (35.5-45.6) % MCHC (32-34) % RDW (13.2-15.2) % POC Glucose 244 H 262 H 142 H (70-105) 03/23/19 03/23/19 Range/Units 07:21 10:10 Hct 35.2 L (35.5-45.6) % MCHC 35 H (32-34) % RDW 12.5 L (13.2-15.2) % POC Glucose 130 H (70-105)
--- NOTE | 2019-03-23 11:20 | Discharge Summary ---
Providers - Providers Date of Admission: 03/17/19 15:25 Date of discharge: 03/23/19 Attending physician: SOTERO HERMOSILLO 03/17/19 20:27 Consult to Wound/ET Nurse [CONS] Routine Reason For Exam: wound eval 03/19/19 12:18 Consult to Physician [CONS] Routine Comment: Consulting Provider: JAN TRIMBLE Physician Instructions: Reason For Exam: left foot abscess 03/21/19 13:27 Consult to Physician [CONS] Routine Comment: Consulting Provider: MALAIKA SMITH Physician Instructions: Reason For Exam: abx recommendation [facility] Hospital course: 43 YO Male with DM presents to ED for evaluation of pain and swelling in his left foot over the past 2 weeks with worsening symptoms of redness, and purulent drainage from his left foot. Pt was seen and evaluated in ED and found to have Diabetic Foot complicated by SIRS, and LLE Cellulitis. Pt admitted to medical floor for further management and started on IV antibiotic therapy. MRI left foot: There are no fractures or malalignments. There is no bone marrow edema. There is no bone marrow enhancement to suggest osteomyelitis. There is diffuse subcutaneous edema and swelling suggesting cellulitis. There is a discrete subcutaneous loculated fluid collection along the first metatarsal bone measuring 3.8 x 3.9 x 1.3 cm suggesting a subcutaneous abscess. Discharge Diagnosis and management: /Cellulites of LLE with abscess placed on IV antibiotic therapy, MRI Left Lower extremity showed possible abscess formation Consulted GS - s/p debridement on 03/20/19 - consulted ID for discharge abx recommendation - discharge on Augmentin 875 PO BID for 10 days until March 30, 2019 -F/u [facility] Clinic in 2 weeks -Case management to arrange wound care outpatient / Diabetic foot treated cellulites, tight glycemic control, wound care/ GS consulted / SIRS (systemic inflammatory response syndrome) likely from diabetis foot ulcer treated with antibiotic therapy, followed cx / Diabetes Managed with ADA diet, Insulin, accu check / DVT prophylaxis SCD to BLE while in bed, prophylactic lovenox Disposition: - TO HOME OR SELFCARE Time spent for discharge: 34 minutes Core Measure Documentation - Palliative Care Palliative Care/ Comfort Measures: Not Applicable - Core Measures Any of the following diagnoses?: none Exam - Physical Exam Narrative exam: General appearance: Present: no acute distress, well-nourished - EENT Eyes: PERRL, EOM intact ENT: hearing intact, clear oral mucosa Ears: bilateral: normal - Neck Neck: supple, normal ROM - Respiratory Respiratory effort: normal Respiratory: bilateral: CTA - Cardiovascular Rhythm: regular Heart Sounds: Present: S1 & S2. Absent: gallop, rub Extremities: pulses intact, No edema, normal color, Full ROM Extremity abnormal: other (left foot with chronic wound and wound dressing) - Gastrointestinal General gastrointestinal: Present: soft, non-tender, non-distended, normal bowel sounds - Integumentary Integumentary: clear, warm, dry - Musculoskeletal Musculoskeletal: 1, strength equal bilaterally - Neurologic Neurologic: moves all extremities - Psychiatric Psychiatric: memory intact, appropriate mood/affect, intact judgment & insight - Constitutional Vitals: Temp Pulse Resp BP Pulse Ox 97.7 F 73 16 109/57 99 03/23/19 06:07 03/23/19 06:07 03/23/19 06:07 03/23/19 06:07 03/23/19 06:07 Plan Activity: advance as tolerated Weight Bearing Status: Weight Bear as Tolerated Diet: diabetic Wound: per wound nurse instructions Additional Instructions: Outpt follow up at wound care clinic. Follow up with: HONEY RIOSGOLIAD MD TIMOTHY [Primary Care Provider] - 3-5 Days MALAIKA SMITH MD [Staff Physician] - 7 Days Prescriptions: Amoxicillin/Potassium Clav [Augmentin 875-125 Tablet] 1 each PO BID #15 tablet Insulin NPH/Regular [NovoLIN 70/30] 18 unit SUB-Q BIDDIAB 60 Days units oxyCODONE /ACETAMINOPHEN [Percocet 5/325 mg] 1 tab PO Q6H PRN #7 tablet PRN Reason: Pain, Moderate (4-6) Other Discharge Orders: Glucometer (Amb) Location: None Selected Glucometer supplies[Amb] Location: None Selected
[2019-03-23] MEDS: DAKIN'S HALF STRENGTH TP SCH (11:45)
[2019-03-23] MEDS: PEPCID PO SCH (11:45)
[2019-03-23 12:14] VITALS: BP 156/90
--- NOTE | 2019-03-23 15:33 | Post Operative Note ---
Date of procedure: 03/20/19 Pre-op diagnosis: infected left foot wound with abscess Post-op diagnosis: same Findings: moderate purulent collection in left foot at medial aspect - 1st metatarsal head. Wound connects to the callus at the plantar aspect of the foot Procedure: incision and drainage of left foot abscess, excisional debridement of foot wounds Anesthesia: MAC, local Surgeon: JAN TRIMBLE Estimated blood loss: minimal Pathology: list (cultures) Specimen disposition: to lab Condition: stable Disposition: PACU
--- NOTE | 2019-03-23 17:05 | Operative Report ---
PREOPERATIVE DIAGNOSIS: Infected left foot wound with abscess. POSTOPERATIVE DIAGNOSIS: Infected left foot wound with abscess. PROCEDURE: Incision and drainage of left foot abscess and excisional debridement of left foot wounds. SURGEON: Selina Aiken DO ESTIMATED BLOOD LOSS: Minimal. ANESTHESIA: MAC with local. SPECIMEN: Cultures. DISPOSITION: Stable to PACU. HISTORY OF PRESENT ILLNESS AND INDICATION: The patient is a 53-year-old male, who presented to the hospital with foot pain and swelling on the left after stepping on a foreign object. On labs, he was found to have very high glucose and found it to be diabetic. Hemoglobin A1c was 11. The foot was examined and there did appear to be purulent drainage from the medial aspect of the first metatarsal head and therefore, it was decided to proceed to the operating room for drainage and debridement. All risks, benefits and alternatives to surgery were discussed with the patient using a [employer] interpreter. All questions were answered and consent obtained. PROCEDURE IN DETAIL: The patient was identified in the preoperative area and taken back to the operating room and placed on the operating table in supine position. After anesthesia was induced, the left foot was prepped and draped in the usual sterile fashion. A timeout was performed. I first started by excising all of the necrotic skin at the medial aspect of the foot at the first metatarsal head using a 15 blade and forceps. Upon excising the necrotic skin, there was immediate drainage of purulent fluid. The wound was probed and all loculations bluntly broken up. All necrotic subcutaneous tissue as well as the underlying tendon was debrided using a combination of forceps, blade, scissors, curette. Once all the purulent material was expressed, wound cultures were obtained. The wound was then irrigated with saline and hemostasis achieved using pressure and electrocautery. The wound measured 2.5 x 3 x 1.5 cm at the end of the debridement. The patient also had a callus at the plantar aspect of the foot at the first metatarsal head, which was probed with a cotton tip applicator. This wound connected to the wound at the medial aspect of the foot. The callus was debrided using a forceps and a blade and the necrotic subcutaneous tissue and skin was debrided in order to unroof the callus. This was done using a forceps and a blade. The wound was then irrigated and hemostasis achieved using electrocautery. This wound measured 1 x 1.5 cm x 0.5 cm at the end of the debridement. Once hemostasis was achieved, both wounds were packed with saline moistened gauze, 1 piece each covered with dry 4 x 4 gauze, ABD pad, and wrapped with Kerlix. At the end of the case, all sharp, instrument, and sponge counts were correct x 2. The patient was awoken from anesthesia, extubated, and taken to PACU in stable condition. JOB# [id number] LEYDI/SANTINO HOWELL
== END 2019-03-23 17:20 | disposition home or self-care (01) | DRG 854 ==
LOC: EDBD → ED 11:02 → 3A 15:25 → EDBD 15:25 → 3A 17:29
PROVIDERS: ADMIT Internal Medicine; ATTEND Internal Medicine
PROC: 0LBW0ZZ Excision of Left Foot Tendon, Open Approach (ICD-10-PCS; principal; 2019-03-20)
PROC: 0JBR0ZZ Excision of Left Foot Subcutaneous Tissue and Fascia, Open Approach (ICD-10-PCS; 2019-03-20)
DX: A41.9 Sepsis, unspecified organism (principal); L03.116 Cellulitis of left lower limb; L02.612 Cutaneous abscess of left foot; E11.52 Type 2 diabetes mellitus with diabetic peripheral angiopathy with gangrene; I96 Gangrene, not elsewhere classified; E11.621 Type 2 diabetes mellitus with foot ulcer; L97.529 Non-pressure chronic ulcer of other part of left foot with unspecified severity; Z83.3 Family history of diabetes mellitus; Z82.49 Family history of ischemic heart disease and other diseases of the circulatory system; Z79.84 Long term (current) use of oral hypoglycemic drugs
CPT/HCPCS: 36415; 80048; 80053; 80202; 82140; 82962; 83036; 85025; 87040; 87075; 87116; 93925; 96361; 96365; 96375; G0378; A6260; A9577; J0295; J1650; J1815; J2250; J2270; J2405; J2543; J2704; J3010; J3370; J7030; J7040; J7050